=== PATIENT | male | born 1955 | race Caucasian/White ===

== ENCOUNTER → 2016-12-25 | Outpatient (CLI) | payer OTHER ==
[~2016-12-25] MED LIST: ALBU0.8317 AEROSOL
== END ==
LOC: NEU 09:09
PROVIDERS: ATTEND Psychiatry & Neurology Neurology
DX: G56.03 Carpal tunnel syndrome, bilateral upper limbs (principal); G57.03 Lesion of sciatic nerve, bilateral lower limbs; G60.9 Hereditary and idiopathic neuropathy, unspecified
CPT/HCPCS: 95886; 95912